=== PATIENT | female | born 1965 | race Caucasian/White ===

== ENCOUNTER 2019-02-13 15:30 | Emergency (ER) | payer MEDICARE, MEDICAID ==
[2019-02-13 16:41] VITALS: BP 156/98
--- NOTE | 2019-02-13 17:52 | UC ---
Respiratory Complaint HPI - HPI Summary HPI Summary: 53 year old female with microcephaly and developmental delay presents with senior oracle adf developer reporting 3-4 day of "cold-like" symptoms and non-productive cough. Reports nasal congestion, clear nasal discharge, and decreased appetite. Today had a mildly elevated temperature of 100 F. Still taking PO fluids well. Caregiver reports that both staff and residents in the home have had similar "cold-like" symptoms. No known flu. Denies difficulty breathing, vomiting, diarrhea, urinary frequency, urgency, hematuria, or foul smelling urine. - History of Current Complaint Chief Complaint: UCRespiratory Stated Complaint: COUGH Time Seen by Provider: 02/13/19 17:16 Hx Obtained From: Family/Shaker Repairer Pain Intensity: 0 - Allergies/Home Medications Allergies/Adverse Reactions: Allergies Allergy/AdvReac Type Severity Reaction Status Date / Time diphenhydramine Allergy Tinnitus Verified 02/13/19 16:41 [From Benadryl] Home Medications: Home Medications Bacitracin OINT* 1 applic TOPICAL DAILY PRN 02/13/19 [History Confirmed 02/13/19 ] PMH/Surg Hx/FS Hx/Imm Hx - Additional Past Medical History Additional PMH: Seasonal allergies, microcephally with developmental delay Neurological History: Seizures - Surgical History Surgical History: None - Family History Known Family History: Positive: Unknown - Social History Occupation: Disabled Lives: [employer] Alcohol Use: None Substance Use Type: None Smoking Status (MU): Never Smoked Tobacco Review of Systems All Other Systems Reviewed And Are Negative: Yes Constitutional: Positive: Fever Skin: Negative: Rash Eyes: Negative: Drainage, Eye Redness ENT: Positive: Nasal Discharge, Sinus Congestion Respiratory: Positive: Cough. Negative: Shortness Of Breath Gastrointestinal: Negative: Vomiting, Diarrhea Genitourinary: Negative: Hematuria, Frequency, Urgency Musculoskeletal: Positive: Negative Is Patient Immunocompromised?: No Physical Exam - Summary Physical Exam Summary: GENERAL APPEARANCE: Alert and cooperative female who appears to be in no acute distress. HEAD: Microcephalic. EYES: Conjunctiva clear. No drainage. EARS: External auditory canals and tympanic membranes clear. NOSE: Mild nasal congestio with clear nasal discharge. THROAT: Pharynx normal. No tonsilar inflammation, swelling, exudate, or lesions. Uvula midline. NECK: Neck supple, non-tender without lymphadenopathy. CARDIAC: Normal S1 and S2. No S3, S4 or murmurs. Rhythm is regular. There is no peripheral edema, cyanosis or pallor. Extremities are warm and well perfused. Capillary refill is less than 2 seconds. Peripheral pulses intact. LUNGS: Patient did not give good inspiratory effort on exam. Clear to auscultation without rales, rhonchi, or wheezing. ABDOMEN: Positive bowel sounds. Soft, nondistended, nontender. No guarding or rebound. MUSKULOSKELETAL: ROM intact to all extremities. No joint erythema or tenderness. SKIN: Skin normal color, texture and turgor with no lesions or eruptions. Triage Information Reviewed: Yes Vital Signs: Initial Vital Signs Temp 98.3 F 02/13/19 16:34 Pulse 96 02/13/19 16:34 Resp 18 02/13/19 16:34 BP 156/98 02/13/19 16:34 Pulse Ox 98 02/13/19 16:34 Vital Signs Reviewed: Yes Respiratory Course/Dx - Course Course Of Treatment: 53 year old female with microcephaly and developmental delay presents with senior oracle adf developer reporting 3-4 day of "cold-like" symptoms and non-productive cough. Reports nasal congestion, clear nasal discharge, and decreased appetite. Today had a mildly elevated temperature of 100 F. Still taking PO fluids well. Caregiver reports that both staff and residents in the home have had similar "cold-like" symptoms. No known flu. Denies difficulty breathing, vomiting, diarrhea, urinary frequency, urgency, hematuria, or foul smelling urine. Afebrile. Hypertensive otherwise VSS. Exam revealed an alert, cooperative female in no acute distress with mild nasal congestion and otherwise unremarkable exam. Her breath sounds were clear bilaterally however she gave poor inspiratory effort. Rapid flu test negative. CXR showed poor inspiratory effort but no evidence of acute cardiopulmonary pathology. Patient likely has a viral URI. Recommending symptomatic treatment at this time. She is to follow up with her PCP in 5 days if no improvement in symptoms. Anticipatory guidance and warning symptoms reviewed with caregiver. Verbalizes understanding and agrees with POC. - Differential Dx/Diagnosis Differential Diagnosis/HQI/PQRI: Influenza, Lower Resp Infection, Other - URI Provider Diagnosis: Upper respiratory infection, viral Discharge - Sign-Out/Discharge Documenting (check all that apply): Patient Departure All imaging exams completed and their final reports reviewed: No - Discharge Plan Condition: Stable Disposition: HOME Patient Education Materials: Upper Respiratory Infection (ED) Referrals: Dragan Cervantes MD [Primary Care Provider] - 5 Days (If no improvement in symptoms. ) Additional Instructions: Your history and exam are consistent with a viral upper respiratory infection. Viral infections do not respond to antibiotics and are limited to the treatment of symptoms. Viral infections typically run their course in 7-10 days. Plenty of rest. Drink plenty of fluids. Take pseudoephedrine according to directions as needed for congestion. Take over the counter acetaminophen (Tylenol) according to directions as needed for pain or fever. /use Robitussin according to directions as needed for cough. Follow up with your primary care provider in 5 days if symptoms persist. Seek immediate medical attention in the emergency room if you have fever greater than 100.5 F despite taking acetaminophen or ibuprofen, have chest pain , difficulty breathing, are unable to swallow, or have any worsening of symptoms. - Billing Disposition and Condition Condition: STABLE Disposition: Home
[2019-02-13 18:05] LABS: Influenza A Molecular NEGATIVE (Negative); Influenza B Molecular NEGATIVE (Negative)
--- NOTE | 2019-02-14 07:15 | UC ---
- EKG/XRAY/CT XRAY: chest - no actue cardiopulmonary abnormalities Course/Dx - Diagnoses Provider Diagnoses: Upper respiratory infection, viral Discharge - Sign-Out/Discharge Documenting (check all that apply): Post-Discharge Follow Up All imaging exams completed and their final reports reviewed: Yes - Discharge Plan Condition: Stable Disposition: HOME Patient Education Materials: Upper Respiratory Infection (ED) Referrals: Dragan Cervantes MD [Primary Care Provider] - 5 Days (If no improvement in symptoms. ) Additional Instructions: Your history and exam are consistent with a viral upper respiratory infection. Viral infections do not respond to antibiotics and are limited to the treatment of symptoms. Viral infections typically run their course in 7-10 days. Plenty of rest. Drink plenty of fluids. Take pseudoephedrine according to directions as needed for congestion. Take over the counter acetaminophen (Tylenol) according to directions as needed for pain or fever. /use Robitussin according to directions as needed for cough. Follow up with your primary care provider in 5 days if symptoms persist. Seek immediate medical attention in the emergency room if you have fever greater than 100.5 F despite taking acetaminophen or ibuprofen, have chest pain , difficulty breathing, are unable to swallow, or have any worsening of symptoms. - Billing Disposition and Condition Condition: STABLE Disposition: Home
== END 2019-02-13 18:45 | disposition home or self-care (01) ==
LOC: UCEAST 15:30
DX: J06.9 Acute upper respiratory infection, unspecified (principal); Q02 Microcephaly; R62.50 Unspecified lack of expected normal physiological development in childhood; Z88.8 Allergy status to other drugs, medicaments and biological substances
CPT/HCPCS: 71046; 99201; G0463

== ENCOUNTER 2019-11-19 08:55 | Emergency (ER) | payer MEDICARE, MEDICAID ==
--- NOTE | 2019-11-19 10:00 | UC ---
Complaint Female HPI - HPI Summary HPI Summary: 54 yo female presents, accompanied by retirement members. Pt is non-verbal. Caretakers tell me that over the last 3 days pt has been itching her groin. Mother of pt is concerned there is an internal yeast infection and is requesting testing today. Caretakers states they applied a lotromin cream to pt' s groin as the area is red and seems to be the site of the itching. Denies fever. - History Of Current Complaint Chief Complaint: UCGU Stated Complaint: ITCHINESS Time Seen by Provider: 11/19/19 09:55 Hx Obtained From: Family/Prevention Specialist Hx From Patient Unobtainable Due To: Altered Mental Status Pain Intensity: 0 - Allergies/Home Medications Allergies/Adverse Reactions: Allergies Allergy/AdvReac Type Severity Reaction Status Date / Time diphenhydramine Allergy Tinnitus Verified 11/19/19 09:32 [From Benadryl] PMH/Surg Hx/FS Hx/Imm Hx - Additional Past Medical History Additional PMH: Mental disability Neurological History: Seizures - Surgical History Surgical History: None - Family History Known Family History: Positive: Unknown - Social History Alcohol Use: None Substance Use Type: None Smoking Status (MU): Never Smoked Tobacco Review of Systems All Other Systems Reviewed And Are Negative: No Constitutional: Positive: Negative Skin: Positive: Rash - groin Respiratory: Positive: Negative Cardiovascular: Positive: Negative Gastrointestinal: Positive: Negative Genitourinary: Positive: Negative Psychological: Positive: Negative Physical Exam - Summary Physical Exam Summary: GENERAL: NAD. WDWN. SKIN: GROIN: right inguinal region with moderate erythema - yeast appearing. CHEST: No accessory muscle use. Breathing comfortably and in no distress. CV: Pulses intact. Cap refill <2seconds NEURO: Alert. PSYCH: Age appropriate behavior. Triage Information Reviewed: Yes Vital Signs: Initial Vital Signs Temp 97.1 F 11/19/19 09:37 Pulse 86 11/19/19 09:37 Resp 18 11/19/19 09:37 BP 152/103 11/19/19 09:37 Pulse Ox 98 11/19/19 09:37 Vital Signs: Temp Pulse Resp BP Pulse Ox 97.1 F 86 18 140/100 98 11/19/19 09:37 11/19/19 09:37 11/19/19 09:37 11/19/19 10:04 11/19/19 09:37 Vital Signs Reviewed: Yes Pelvic Exam: Positive: External Exam Normal, Other - Pt not amenable to speculum exam. No lesions or drainage noted. Complaint Female Dx - Course Course Of Treatment: Pt not amenable to speculum exam. A blind vaginal swab was obtained and will be sent for affrim testing. I suspect the groin yeast is the cause of the itching. - Differential Dx/Diagnosis Provider Diagnosis: Skin yeast infection Discharge ED - Sign-Out/Discharge Documenting (check all that apply): Patient Departure All imaging exams completed and their final reports reviewed: No Studies - Discharge Plan Condition: Stable Disposition: HOME Prescriptions: Fluconazole 150 MG TAB* [Diflucan 150 MG TAB*] 150 mg PO UC ONCE #1 tablet Nystatin TOP POWDER* 1 applic TOPICAL BID 5 Days #1 btl Patient Education Materials: Yeast Infection (ED), Skin Yeast Infection (ED) Referrals: Dragan Cervantes MD [Primary Care Provider] - Additional Instructions: If you develop a fever, shortness of breath, chest pain, new or worsening symptoms - please call your PCP or go to the ED immediately. Your blood pressure was high at todays visit. Please see your primary provider within 4 weeks for recheck and re-evaluation. Please stop using the lotrimin cream and start using the nystatin powder in the groin region. The yeast infection appear external, but a swab was taken internally and will be sent to the lab for testing. - Billing Disposition and Condition Condition: STABLE Disposition: Home
[2019-11-19 10:05] VITALS: BP 140/100
== END 2019-11-19 10:20 | disposition home or self-care (01) ==
LOC: UCEAST 08:55
DX: B37.2 Candidiasis of skin and nail (principal); R41.82 Altered mental status, unspecified; Z88.8 Allergy status to other drugs, medicaments and biological substances
CPT/HCPCS: 87480; 87510; 99212; G0463